=== PATIENT | male | born 1995 | race Two or more races ===

== ENCOUNTER 2022-05-29 19:37 | Emergency (ER) | payer OTHER ==
[2022-05-29 19:45] VITALS: BP 130/74; PULSE 72; RESP 18; TEMP 97.8; BMI 24.3
[2022-05-29] MEDS ORDERED: DIVALPROEX NA *ER* EXTEND REL 500 MG TABLET.SA (FP) PO ONE (20:33)
[2022-05-29] MEDS ORDERED: levETIRAcetam 500 MG TABLET (FP) PO ONE ×2 (20:34→20:54)
[2022-05-29] MEDS ORDERED: PHENYTOIN NA PO ONE (20:35)
[2022-05-29] MEDS ORDERED: DIVALPROEX SODIUM 500 MG TABLET E.C. ONE (20:54)
[2022-05-29 21:50] LABS: BASO % 0.4 % (0-2.0); EOS % 0.4 % (0-4.5); HEMATOCRIT 42.3 % (35.4-49); HEMOGLOBIN 13.9 GM/dL (11.7-16.9); LYMPH % 29.5 % (8-40); MCH 30.7 pg (25.7-33.7); MCHC 32.9 g/dl (32.0-35.9); MEAN CELL VOLUME 93.3 fl (80-96); MEAN PLT VOLUME 9.4 fl (7.5-11.1); MONO % 10.8 % (3.8-10.2); NEUT % 58.9 % (42.8-82.8); PLATELET COUNT 113 10^3/uL (134-434); RBC 4.54 M/mm3 (4.00-5.60); RDW 14.6 % (11.9-15.9); WHITE BLOOD COUNT 4.7 K/mm3 (4.0-10.0)
[2022-05-29 22:10] LABS: CALCIUM 9.2 mg/dL (8.5-10.1)
[2022-05-29 22:11] LABS: ALBUMIN 3.5 g/dl (3.4-5.0); BLOOD UREA NITROGEN 12.4 mg/dL (7-18)
[2022-05-29 22:14] LABS: CREATININE 0.7 mg/dL (0.55-1.3)
[2022-05-29 22:15] LABS: TOT PROT 7.5 g/dl (6.4-8.2)
[2022-05-29 22:16] LABS: BILIRUBIN,TOTAL 0.2 mg/dL (0.2-1)
== END 2022-05-29 23:55 | disposition home or self-care (01) ==
LOC: JER 19:37
DX: G40.89 Other seizures (principal)
CPT/HCPCS: 0241U-QW; 36415; 80053; 80177; 80185; 82962; 84443; 85025; 99284-25

== ENCOUNTER 2024-03-13 06:38 | Emergency (ER) | payer OTHER ==
[2024-03-13 06:53] VITALS: BMI 26.0
[2024-03-13] MEDS ORDERED: levETIRAcetam 500 MG/5 ML INJECTION VIAL IVPB ONE (07:48)
[2024-03-13] MEDS: levETIRAcetam 500 MG/5 ML INJECTION VIAL IVPB ONE (09:02)
[2024-03-13] MEDS ORDERED: levETIRAcetam 500 MG TABLET (FP) PO ONE (09:05)
[2024-03-13 09:10] LABS: POTASSIUM 5.1 mmol/L (3.5-5.1)
[2024-03-13] MEDS: levETIRAcetam 500 MG TABLET (FP) PO ONE (09:12)
[2024-03-13 09:15] LABS: ALBUMIN 4.2 g/dl (3.4-5.0); BLOOD UREA NITROGEN 16.5 mg/dL (7-18); CALCIUM 9.8 mg/dL (8.5-10.1)
[2024-03-13 09:18] LABS: CREATININE 0.8 mg/dL (0.55-1.3)
[2024-03-13 09:20] LABS: BILIRUBIN,TOTAL 0.5 mg/dL (0.2-1); TOT PROT 8.6 g/dl (6.4-8.2)
[2024-03-13 10:57] VITALS: BP 98/58; PULSE 80; RESP 20; TEMP 98.3
== END 2024-03-13 11:21 ==
LOC: JER 06:38
DX: G40.909 Epilepsy, unspecified, not intractable, without status epilepticus (principal)
CPT/HCPCS: 36415; 80053; 80177; 82550; 82553; 82962; 93005; 93010; 99284-25

== ENCOUNTER 2024-03-21 16:42 | Emergency (ER) | payer OTHER ==
[2024-03-21 16:53] VITALS: TEMP 98.4; BMI 29.0
[2024-03-21] MEDS ORDERED: HALOPERIDOL LACTATE 5 MG/ML ONE ×2 (18:46→19:59)
[2024-03-21] MEDS: HALOPERIDOL LACTATE 5 MG/ML IM ONE ×2 (18:51→20:10)
[2024-03-21 21:20] VITALS: RESP 14
[2024-03-21 23:24] VITALS: BP 129/86; PULSE 72
== END 2024-03-21 23:26 | disposition home or self-care (01) ==
LOC: JER 16:42
PROC: 3E023GC Introduction of Other Therapeutic Substance into Muscle, Percutaneous Approach (ICD-10-PCS; principal; 2024-03-21)
PROC: 3E023GC Introduction of Other Therapeutic Substance into Muscle, Percutaneous Approach (ICD-10-PCS; 2024-03-21)
PROC: 3E023GC Introduction of Other Therapeutic Substance into Muscle, Percutaneous Approach (ICD-10-PCS; 2024-03-21)
DX: S00.81XA Abrasion of other part of head, initial encounter (principal); G40.909 Epilepsy, unspecified, not intractable, without status epilepticus; W01.198A Fall on same level from slipping, tripping and stumbling with subsequent striking against other object, initial encounter
CPT/HCPCS: 70450-TC; 99284-25

== ENCOUNTER 2024-04-22 09:24 | Inpatient (IN) | payer OTHER ==
[2024-04-22] MEDS ORDERED: levETIRAcetam 500 MG/5 ML INJECTION VIAL IVPB ONE (10:47)
[2024-04-22 10:50] LABS: VENOUS BASE EXCESS -9.8 mmol/L (-2-2); VENOUS O2 SATURATION 58.4 % (70-80)
[2024-04-22 10:53] LABS: HEMATOCRIT 45.2 % (35.4-49); HEMOGLOBIN 15.3 GM/dL (11.7-16.9); MCH 29.9 pg (25.7-33.7); MCHC 33.8 g/dl (32.0-35.9); MEAN CELL VOLUME 88.6 fl (80-96); MEAN PLT VOLUME 10.4 fl (7.5-11.1); PLATELET COUNT 148 10^3/uL (134-434); RDW 13.9 % (11.9-15.9); WHITE BLOOD COUNT 5.4 K/mm3 (4.0-10.0)
[2024-04-22 10:54] LABS: VENOUS PH 7.068 (7.310-7.410)
[2024-04-22 10:55] LABS: VENOUS PCO2 79.6 mmHg (38-52)
[2024-04-22 11:15] LABS: LACTIC ACID 8.8 mmol/L (0.4-2.0)
[2024-04-22] MEDS: levETIRAcetam 500 MG/5 ML INJECTION VIAL IVPB ONE (11:16)
[2024-04-22 11:18] LABS: POTASSIUM 4.1 mmol/L (3.5-5.1)
[2024-04-22 11:20] LABS: ALBUMIN 4.2 g/dl (3.4-5.0); CALCIUM 9.5 mg/dL (8.5-10.1)
[2024-04-22 11:21] LABS: BLOOD UREA NITROGEN 11.3 mg/dL (7-18); MAGNESIUM 1.8 mg/dL (1.8-2.4)
[2024-04-22 11:23] LABS: CREATININE 0.9 mg/dL (0.55-1.3)
[2024-04-22 11:25] LABS: BILIRUBIN,TOTAL 0.3 mg/dL (0.2-1); TOT PROT 8.2 g/dl (6.4-8.2)
[2024-04-22 11:41] LABS: PH,URINE 5.5 (5.0-8.0); URINE APPEARANCE CLEAR; URINE BILIRUBIN NEGATIVE (NEGATIVE); URINE COLOR YELLOW; URINE GLUCOSE (UA) NEGATIVE (NEGATIVE); URINE KETONE NEGATIVE (NEGATIVE); URINE LEUK ESTERASE NEGATIVE (NEGATIVE); URINE NITRITE NEGATIVE (NEGATIVE); URINE PROTEIN NEGATIVE (NEGATIVE); URINE UROBILINOGEN 0.2 mg/dL (0.2-1.0)
[2024-04-22] MEDS ORDERED: VALPROATE SODIUM 500 MG/5 ML VIAL ONE (11:56)
[2024-04-22] MEDS: SODIUM CHLORIDE 0.9% 500 ML INFUS.BAG IV ONE ×2 (12:09→15:22)
[2024-04-22] MEDS: VALPROATE SODIUM 500 MG/5 ML VIAL IVPB ONE (12:09)
[2024-04-22 15:33] LABS: VENOUS BASE EXCESS -1.6 mmol/L (-2-2); VENOUS O2 SATURATION 50.2 % (70-80); VENOUS PCO2 51.6 mmHg (38-52); VENOUS PH 7.312 (7.310-7.410)
[2024-04-22 17:07] LABS: ANISOCYTOSIS 0; MACROCYTOSIS 0; PLATELET ESTIMATE NORMAL
[2024-04-22] MEDS ORDERED: risperiDONE 0.5 MG TABLET ONE (21:00)
[2024-04-22] MEDS ORDERED: HEPARIN NA (PORCINE) 5,000 UNITS/ML 1ML VIAL ONE (21:00)
[2024-04-22] MEDS ORDERED: levETIRAcetam 500 MG TABLET (FP) PO ONE (21:00)
[2024-04-22] MEDS: HEPARIN NA (PORCINE) 5,000 UNITS/ML 1ML VIAL SQ SCH (21:34)
[2024-04-22] MEDS: PETROLATUM,WHITE OINTMENT 3.5 OZ JAR TP SCH (21:34)
[2024-04-22] MEDS: levETIRAcetam XR 500 MG TAB PO SCH (21:35)
[2024-04-22] MEDS: FLUOCINONIDE 0.05% TOPICAL SOLUTION (60 ML BOTTLE) TP SCH (21:35)
[2024-04-22] MEDS: risperiDONE 1 MG TABLET PO SCH (21:35)
[2024-04-22] MEDS: KETOCONAZOLE 2 % SHAMPOO 120 ML BOTTLE TP SCH (21:35)
[2024-04-22] MEDS ORDERED: PHENYTOIN NA PO SCH (22:00)
[2024-04-22] MEDS ORDERED: DIVALPROEX NA *ER* EXTEND REL 500 MG TABLET.SA (FP) PO SCH (22:00)
[2024-04-23 05:01] VITALS: BMI 23.3
[2024-04-23] MEDS: LEVOTHYROXINE NA 112 MCG TABLET (FP) PO SCH (06:59)
[2024-04-23] MEDS: DIVALPROEX SODIUM 500 MG TABLET E.C. PO SCH (06:59)
[2024-04-23] MEDS: CHOLECALCIFEROL (VIT D3) 1,000 UNIT (25 MCG) TABLET PO SCH (10:27)
[2024-04-23] MEDS: POLYETHYLENE GLYCOL (HEALTHYLAX) 3350 17 GM PACKET PO SCH (10:27)
[2024-04-23] MEDS: MINERAL OIL/PET HY-PHL TOPICAL OINTMENT 454 GM JAR TP SCH (11:20)
[2024-04-23 12:47] LABS: BASO % 0.6 % (0-2.0); EOS % 0.6 % (0-4.5); HEMATOCRIT 41.2 % (35.4-49); HEMOGLOBIN 14.2 GM/dL (11.7-16.9); LYMPH % 31.3 % (8-40); MCH 29.7 pg (25.7-33.7); MCHC 34.4 g/dl (32.0-35.9); MEAN CELL VOLUME 86.3 fl (80-96); MEAN PLT VOLUME 10.1 fl (7.5-11.1); MONO % 13.2 % (3.8-10.2); NEUT % 54.3 % (42.8-82.8); PLATELET COUNT 138 10^3/uL (134-434); RBC 4.78 M/mm3 (4.00-5.60); RDW 13.5 % (11.9-15.9); WHITE BLOOD COUNT 3.8 K/mm3 (4.0-10.0)
[2024-04-23] MEDS ORDERED: LEVOCARNITINE 330 MG PO SCH (14:00)
[2024-04-24] MEDS: HALOPERIDOL LACTATE 5 MG/ML IM ONE (00:15)
[2024-04-24] MEDS: levETIRAcetam 500 MG/5 ML INJECTION VIAL IVPB SCH (11:04)
[2024-04-24] MEDS: LORazepam 2 MG/ML SDV VIAL IM ONE (11:05)
[2024-04-24] MEDS: levOCARNitine 500 MG/5 ML SOLUTION PO SCH (11:07)
[2024-04-24 13:03] LABS: BASO % 0.6 % (0-2.0); EOS % 0.9 % (0-4.5); HEMATOCRIT 45.4 % (35.4-49); HEMOGLOBIN 15.1 GM/dL (11.7-16.9); LYMPH % 20.3 % (8-40); MCH 28.9 pg (25.7-33.7); MCHC 33.4 g/dl (32.0-35.9); MEAN CELL VOLUME 86.6 fl (80-96); MEAN PLT VOLUME 10.8 fl (7.5-11.1); MONO % 14.7 % (3.8-10.2); NEUT % 63.5 % (42.8-82.8); PLATELET COUNT 154 10^3/uL (134-434); RBC 5.24 M/mm3 (4.00-5.60); RDW 13.8 % (11.9-15.9)
[2024-04-24 13:23] LABS: POTASSIUM 4.2 mmol/L (3.5-5.1)
[2024-04-24 13:25] LABS: CALCIUM 9.5 mg/dL (8.5-10.1)
[2024-04-24 13:27] LABS: ALBUMIN 4.1 g/dl (3.4-5.0); BLOOD UREA NITROGEN 9.6 mg/dL (7-18); MAGNESIUM 1.8 mg/dL (1.8-2.4)
[2024-04-24 13:29] LABS: CREATININE 0.7 mg/dL (0.55-1.3); PHOSPHOROUS 4.2 mg/dL (2.5-4.9)
[2024-04-24 13:30] LABS: BILIRUBIN,TOTAL 0.3 mg/dL (0.2-1); TOT PROT 8.1 g/dl (6.4-8.2)
[2024-04-24] MEDS ORDERED: VALPROATE SODIUM 500 MG/5 ML VIAL IVPB SCH (22:00)
[2024-04-24] MEDS: VALPROATE SODIUM INJECTION 500 MG in SODIUM CHLORIDE 100 ML IVPB SCH (22:21)
[2024-04-25 09:06] LABS: BASO % 0.4 % (0-2.0); EOS % 1.5 % (0-4.5); HEMATOCRIT 45.4 % (35.4-49); LYMPH % 22.6 % (8-40); MCH 29.9 pg (25.7-33.7); MCHC 35.1 g/dl (32.0-35.9); MEAN CELL VOLUME 85.1 fl (80-96); MEAN PLT VOLUME 8.5 fl (7.5-11.1); MONO % 11.9 % (3.8-10.2); NEUT % 63.6 % (42.8-82.8); PLATELET COUNT 248 10^3/uL (134-434); RBC 5.33 M/mm3 (4.00-5.60); WHITE BLOOD COUNT 7.4 K/mm3 (4.0-10.0)
[2024-04-25 09:18] LABS: POTASSIUM 4.3 mmol/L (3.5-5.1)
[2024-04-25] MEDS ORDERED: LEVOTHYROXINE SODIUM 100 MCG 5 ML VIAL IVPUSH SCH (10:00)
[2024-04-25] MEDS: LEVOTHYROXINE SODIUM 100 MCG 5 ML VIAL IVPUSH SCH (10:10)
[2024-04-25 10:16] LABS: CALCIUM 8.9 mg/dL (8.5-10.1)
[2024-04-25 10:17] LABS: ALBUMIN 3.7 g/dl (3.4-5.0); BLOOD UREA NITROGEN 11.8 mg/dL (7-18); MAGNESIUM 1.8 mg/dL (1.8-2.4)
[2024-04-25 10:20] LABS: CREATININE 0.7 mg/dL (0.55-1.3); PHOSPHOROUS 3.7 mg/dL (2.5-4.9)
[2024-04-25 10:21] LABS: TOT PROT 7.4 g/dl (6.4-8.2)
[2024-04-25 10:22] LABS: BILIRUBIN,TOTAL 0.5 mg/dL (0.2-1)
[2024-04-25] MEDS ORDERED: levETIRAcetam 500 MG TABLET (FP) PO SCH (22:00)
[2024-04-25] MEDS ORDERED: DIVALPROEX SODIUM 500 MG TABLET E.C. PO SCH (22:00)
[2024-04-25] MEDS: LORazepam 1 MG TABLET PO SCH (22:25)
[2024-04-25] MEDS: levETIRAcetam 500 MG TABLET (FP) PO SCH (22:26)
[2024-04-25] MEDS: DIVALPROEX SODIUM 500 MG TABLET E.C. PO SCH (22:27)
[2024-04-26] MEDS: LEVOTHYROXINE NA 100 MCG TABLET (FP) PO SCH (06:18)
[2024-04-26 08:22] LABS: EOS % 1.1 % (0-4.5); HEMATOCRIT 42.6 % (35.4-49); HEMOGLOBIN 14.4 GM/dL (11.7-16.9); LYMPH % 37.1 % (8-40); MCH 29.6 pg (25.7-33.7); MCHC 33.8 g/dl (32.0-35.9); MEAN CELL VOLUME 87.5 fl (80-96); MEAN PLT VOLUME 10.6 fl (7.5-11.1); MONO % 15.3 % (3.8-10.2); NEUT % 45.5 % (42.8-82.8); PLATELET COUNT 136 10^3/uL (134-434); RBC 4.87 M/mm3 (4.00-5.60); RDW 13.9 % (11.9-15.9)
[2024-04-26 08:43] LABS: POTASSIUM 4.4 mmol/L (3.5-5.1)
[2024-04-26 08:48] LABS: ALBUMIN 3.9 g/dl (3.4-5.0); CALCIUM 9.5 mg/dL (8.5-10.1)
[2024-04-26 08:50] LABS: BLOOD UREA NITROGEN 8.6 mg/dL (7-18); MAGNESIUM 1.8 mg/dL (1.8-2.4)
[2024-04-26 08:51] LABS: CREATININE 0.6 mg/dL (0.55-1.3); PHOSPHOROUS 3.8 mg/dL (2.5-4.9)
[2024-04-26 08:52] LABS: TOT PROT 7.7 g/dl (6.4-8.2)
[2024-04-26 08:53] LABS: BILIRUBIN,TOTAL 0.4 mg/dL (0.2-1)
[2024-04-27 07:11] LABS: HEMATOCRIT 42.1 % (35.4-49); HEMOGLOBIN 13.9 GM/dL (11.7-16.9); MCH 29.1 pg (25.7-33.7); MCHC 33.1 g/dl (32.0-35.9); MEAN CELL VOLUME 87.9 fl (80-96); MEAN PLT VOLUME 10.4 fl (7.5-11.1); PLATELET COUNT 148 10^3/uL (134-434); RBC 4.79 M/mm3 (4.00-5.60); RDW 13.7 % (11.9-15.9); WHITE BLOOD COUNT 3.5 K/mm3 (4.0-10.0)
[2024-04-27 07:34] LABS: POTASSIUM 4.5 mmol/L (3.5-5.1)
[2024-04-27 07:37] LABS: CALCIUM 9.4 mg/dL (8.5-10.1)
[2024-04-27 07:38] LABS: BLOOD UREA NITROGEN 12.9 mg/dL (7-18)
[2024-04-27 07:41] LABS: CREATININE 0.7 mg/dL (0.55-1.3); PHOSPHOROUS 4.1 mg/dL (2.5-4.9)
[2024-04-27 15:20] VITALS: BP 120/75; PULSE 80; RESP 18; TEMP 97.8
== END 2024-04-27 17:10 | DRG 53 ==
LOC: JER 09:24 → JERBED 13:56 → J4W 04-23 02:59
PROVIDERS: ADMIT Internal Medicine; ATTEND Internal Medicine
DX: G40.909 Epilepsy, unspecified, not intractable, without status epilepticus (principal); E03.9 Hypothyroidism, unspecified; F84.0 Autistic disorder; F79 Unspecified intellectual disabilities; T42.6X6A Underdosing of other antiepileptic and sedative-hypnotic drugs, initial encounter; Z91.138 Patient's unintentional underdosing of medication regimen for other reason; Y92.099 Unspecified place in other non-institutional residence as the place of occurrence of the external cause
CPT/HCPCS: 36415; 70450-TC; 71045-TC-FY; 80048; 80053; 80164; 80177; 81003; 82803; 82962; 83036; 83605; 83735; 84100; 84439; 84443; 85025; 85027; 87086; 87635; 93005; 93010; 99285-25; J1644

== ENCOUNTER 2024-07-08 16:37 | Emergency (ER) | payer OTHER ==
[2024-07-08 16:48] VITALS: BP 134/84; PULSE 80; RESP 18; BMI 24.3
[2024-07-08 18:53] VITALS: TEMP 98.6
[2024-07-08 18:57] LABS: BASO % 0.3 % (0-2.0); EOS % 0.4 % (0-4.5); HEMATOCRIT 43.7 % (35.4-49); HEMOGLOBIN 14.6 GM/dL (11.7-16.9); MCH 29.2 pg (25.7-33.7); MCHC 33.4 g/dl (32.0-35.9); MEAN CELL VOLUME 87.2 fl (80-96); MEAN PLT VOLUME 9.4 fl (7.5-11.1); MONO % 9.1 % (3.8-10.2); NEUT % 72.2 % (42.8-82.8); PLATELET COUNT 100 10^3/uL (134-434); RBC 5.01 M/mm3 (4.00-5.60); RDW 13.9 % (11.9-15.9); WHITE BLOOD COUNT 5.5 K/mm3 (4.0-10.0)
[2024-07-08 19:32] LABS: POTASSIUM 4.1 mmol/L (3.5-5.1)
[2024-07-08 19:34] LABS: CALCIUM 8.8 mg/dL (8.5-10.1)
[2024-07-08 19:35] LABS: ALBUMIN 3.7 g/dl (3.4-5.0); BLOOD UREA NITROGEN 11.4 mg/dL (7-18)
[2024-07-08 19:38] LABS: CREATININE 0.7 mg/dL (0.55-1.3)
[2024-07-08 19:39] LABS: BILIRUBIN,TOTAL 0.4 mg/dL (0.2-1)
[2024-07-08 19:40] LABS: TOT PROT 7.3 g/dl (6.4-8.2)
== END 2024-07-08 20:46 | disposition home or self-care (01) ==
LOC: JER 16:37
DX: G40.409 Other generalized epilepsy and epileptic syndromes, not intractable, without status epilepticus (principal); R47.01 Aphasia
CPT/HCPCS: 36415; 80053; 85025; 99283-25

== ENCOUNTER 2024-07-30 08:07 | Emergency (ER) | payer OTHER ==
[2024-07-30 09:45] VITALS: BP 107/79; PULSE 64; TEMP 97.7; BMI 22.1
[2024-07-30 11:33] LABS: BASO % 0.9 % (0-2.0); HEMATOCRIT 46.9 % (35.4-49); HEMOGLOBIN 15.6 GM/dL (11.7-16.9); LYMPH % 31.5 % (8-40); MCH 29.2 pg (25.7-33.7); MCHC 33.2 g/dl (32.0-35.9); MEAN CELL VOLUME 87.7 fl (80-96); MEAN PLT VOLUME 10.1 fl (7.5-11.1); MONO % 10.4 % (3.8-10.2); NEUT % 56.2 % (42.8-82.8); PLATELET COUNT 170 10^3/uL (134-434); RBC 5.35 M/mm3 (4.00-5.60); RDW 13.5 % (11.9-15.9); WHITE BLOOD COUNT 3.3 K/mm3 (4.0-10.0)
[2024-07-30 11:50] LABS: POTASSIUM 4.3 mmol/L (3.5-5.1)
[2024-07-30 11:55] LABS: ALBUMIN 4.1 g/dl (3.4-5.0); BLOOD UREA NITROGEN 9.7 mg/dL (7-18); CALCIUM 9.7 mg/dL (8.5-10.1); MAGNESIUM 1.9 mg/dL (1.8-2.4)
[2024-07-30 11:58] LABS: CREATININE 0.9 mg/dL (0.55-1.3)
[2024-07-30 11:59] LABS: PHOSPHOROUS 3.9 mg/dL (2.5-4.9)
[2024-07-30 12:00] LABS: BILIRUBIN,TOTAL 0.6 mg/dL (0.2-1)
[2024-07-30 14:31] VITALS: RESP 16
== END 2024-07-30 14:31 | disposition home or self-care (01) ==
LOC: JER 08:07
DX: G40.909 Epilepsy, unspecified, not intractable, without status epilepticus (principal)
CPT/HCPCS: 36415; 80053; 80164; 82962; 83735; 84100; 85025; 93005; 93010; 99284-25

== ENCOUNTER 2024-10-13 00:08 | Emergency (ER) | payer OTHER ==
[2024-10-13 00:24] VITALS: BP 129/76; PULSE 68; RESP 20; BMI 26.5
[2024-10-13 01:53] LABS: BASO % 0.4 % (0-2.0); EOS % 1.3 % (0-4.5); HEMATOCRIT 47.5 % (35.4-49); HEMOGLOBIN 15.6 GM/dL (11.7-16.9); LYMPH % 27.3 % (8-40); MCH 28.6 pg (25.7-33.7); MEAN CELL VOLUME 86.9 fl (80-96); MEAN PLT VOLUME 8.8 fl (7.5-11.1); MONO % 10.3 % (3.8-10.2); NEUT % 60.7 % (42.8-82.8); PLATELET COUNT 172 10^3/uL (134-434); RBC 5.46 M/mm3 (4.00-5.60); RDW 13.8 % (11.9-15.9); WHITE BLOOD COUNT 5.9 K/mm3 (4.0-10.0)
[2024-10-13 02:13] LABS: ALBUMIN 3.9 g/dl (3.4-5.0); BLOOD UREA NITROGEN 11.1 mg/dL (7-18); CALCIUM 9.7 mg/dL (8.5-10.1); MAGNESIUM 1.9 mg/dL (1.8-2.4)
[2024-10-13 02:17] LABS: CREATININE 0.8 mg/dL (0.55-1.3)
[2024-10-13 02:18] LABS: BILIRUBIN,TOTAL 0.3 mg/dL (0.2-1)
[2024-10-13 02:25] LABS: POTASSIUM 4.5 mmol/L (3.5-5.1)
[2024-10-13] MEDS ORDERED: levETIRAcetam 500 MG/5 ML INJECTION VIAL IVPB ONE (03:52)
[2024-10-13] MEDS: levETIRAcetam 500 MG/5 ML INJECTION VIAL IVPB ONE (04:09)
== END 2024-10-13 05:19 | disposition home or self-care (01) ==
LOC: JER 00:08
PROC: 3E033GC Introduction of Other Therapeutic Substance into Peripheral Vein, Percutaneous Approach (ICD-10-PCS; principal; 2024-10-13)
DX: R09.81 Nasal congestion (principal); B34.9 Viral infection, unspecified; Z20.822 Contact with and (suspected) exposure to COVID-19
CPT/HCPCS: 0241U-QW; 36415; 80053; 83735; 84443; 85025; 99284-25

== ENCOUNTER 2025-02-15 19:33 | Emergency (ER) | payer OTHER ==
[2025-02-15 19:47] VITALS: RESP 18; BMI 25.4
[2025-02-15] MEDS ORDERED: clonazePAM 0.5 MG TABLET ONE (20:39)
[2025-02-15] MEDS: clonazePAM 0.5 MG TABLET PO ONE (20:47)
[2025-02-15] MEDS: ACETAMINOPHEN 325 MG TABLET (FP) PO ONE (20:55)
[2025-02-15] MEDS ORDERED: ACETAMINOPHEN 325 MG TABLET (FP) ONE (20:56)
[2025-02-15] MEDS ORDERED: LORazepam 1 MG TABLET ONE (22:29)
[2025-02-15] MEDS: LORazepam 1 MG TABLET PO ONE (22:43)
[2025-02-15 22:49] LABS: ABSOLUTE IMMATURE GRANULOCYTES 0.01 x10^3/uL (0.0-0.031); BASOPHILS # 0.03 x10^3/uL (0.01-0.08); EOSINOPHIL % 1.2 % (0.8-7.0); EOSINOPHILS # 0.07 x10^3/uL (0.04-0.54); HEMATOCRIT 38.1 % (40.1-51.0); HEMOGLOBIN 12.5 g/dL (13.7-17.5); MCHC 32.8 g/dl (32.3-36.5); MEAN CELL VOLUME 87.8 fl (79.0-92.2); MONOCYTE # 0.89 x10^3/uL (0.30-0.82); MONOCYTE % 14.7 % (5.3-12.2); PLATELET COUNT 150 x10^3/uL (163-337)
[2025-02-15 22:55] LABS: INR 1.25 (0.83-1.09); PROTHROMBIN TIME (PATIENT) 13.7 SEC (9.7-13.0)
[2025-02-15 23:35] LABS: ERYTHROCYTE SEDIMENTATION RATE 2 mm/hr (0-10)
[2025-02-15 23:36] LABS: POTASSIUM 4.4 mmol/L (3.5-5.1)
[2025-02-15 23:39] LABS: ALBUMIN 3.5 g/dl (3.4-5.0); BLOOD UREA NITROGEN 13.2 mg/dL (7-18)
[2025-02-15 23:42] LABS: CREATININE 0.6 mg/dL (0.55-1.3)
[2025-02-15 23:43] LABS: BILIRUBIN,TOTAL 0.3 mg/dL (0.2-1); TOT PROT 6.8 g/dl (6.4-8.2)
[2025-02-16 02:17] VITALS: BP 116/52; PULSE 100; TEMP 98.2
== END 2025-02-16 02:30 | disposition home or self-care (01) ==
LOC: JER 19:33
DX: M25.461 Effusion, right knee (principal); M25.561 Pain in right knee; L53.9 Erythematous condition, unspecified; W01.198A Fall on same level from slipping, tripping and stumbling with subsequent striking against other object, initial encounter; Y93.01 Activity, walking, marching and hiking
CPT/HCPCS: 36415; 73562-TC-RT-FY; 80053; 85025; 85610; 85651; 86140; 99285-25